=== PATIENT | male | born 1990 | race Two or more races ===

== ENCOUNTER 2021-10-24 01:35 | Emergency (ER) | payer OTHER ==
[~2021-10-24] VITALS: Ht 167.6 cm; Wt 104.3 kg
[2021-10-24] MEDS ORDERED: BUTALBIT-ACETA1 EACH PO (03:25)
== END 2021-10-24 04:05 | disposition home or self-care (01) ==
LOC: ER 01:35
DX: R51.9 Headache, unspecified (principal)